=== PATIENT | male | born 1990 | race African-American/Black ===

== ENCOUNTER 2019-03-01 13:40 | Emergency (ER) | payer MEDICAID ==
[~2019-03-01] VITALS: Ht 175.3 cm; Wt 85.0 kg
[~2019-03-01 13:40] MED LIST: ALB; ALBUTEROL MDI
[2019-03-01] MEDS ORDERED: HALOPERIDOL LACTATE 5MG/ML VIAL IM ONE ×2 (13:51→14:00)
[2019-03-01] MEDS ORDERED: LORAZEPAM 2MG/ML CPJ ONE (13:51)
[2019-03-01] MEDS ORDERED: LORAZEPAM 2MG/ML CPJ IM ONE (14:00)
[2019-03-01] MEDS ORDERED: SODIUM CHLORIDE 0.9% 1,000 ML IV ONE (14:16)
[2019-03-01 14:50] LABS: BASOPHILS % 0.7 % (0.0-2.0); EOSINOPHILS % 0.1 % (0.0-5.0); HEMATOCRIT. 42.8 % (42.0-52.0); HEMOGLOBIN. 15.3 g/dL (14.0-18.0); LYMPHOCYTES % 18.5 % (20.0-50.0); MEAN CORPUSCULAR HEMOGLOBIN 30.1 pg (28.0-32.0); MEAN CORPUSCULAR VOLUME 84.5 fL (80.0-94.0); MEAN PLATELET VOLUME 8.8 fl (7.4-10.4); MONOCYTES % 9.5 % (2.0-8.0); NEUTROPHILS % 71.2 % (40.0-76.0); PLATELET 171 x1000/uL (130-400); RED BLOOD CELL COUNT 5.06 mill/uL (4.7-6.1); RED CELL DISTRIBUTION WIDTH 13.3 % (11.6-14.6)
[2019-03-01 14:54] LABS: CHLORIDE 106 mEq/L (98-107)
[2019-03-01 14:58] LABS: ETHANOL BLOOD < 10 mg/dL
[2019-03-01 15:08] LABS: *AMPHETAMINES SCREEN URINE NEGATIVE (NEGATIVE); *BARBITURATES SCREEN URINE NEGATIVE (NEGATIVE); *BENZODIAZEPINES SCREEN URINE NEGATIVE (NEGATIVE); *COCAINE SCREEN URINE NEGATIVE (NEGATIVE); METHADONE URINE SCREEN NEGATIVE (NEGATIVE)
[2019-03-01 15:09] LABS: CANNABINOID URINE SCREEN PRESUMTIVE POSITIVE (NEGATIVE); OPIATES URINE SCREEN NEGATIVE (NEGATIVE); PHENCYCLIDINE URINE SCREEN NEGATIVE (NEGATIVE)
[2019-03-02 00:31] VITALS: BP 110/59
== END 2019-03-02 00:33 | disposition home or self-care (01) ==
LOC: ER 13:40
DX: R45.1 Restlessness and agitation (principal); J45.909 Unspecified asthma, uncomplicated; F12.10 Cannabis abuse, uncomplicated; Z79.899 Other long term (current) drug therapy
CPT/HCPCS: 36415; 80053; 80305; 80320; 85025; 96372; 99283; J1630; J2060; J7030; G0480